=== PATIENT | female | born 1955 | race Caucasian/White ===

== ENCOUNTER 2021-12-17 09:38 | Outpatient (REF) | payer OTHER, SELFPAY ==
[2021-12-17 10:08] LABS: MANUAL DIFF FLAG NO
[2021-12-17 10:26] LABS: Basophils Percent Auto 0.5 % (0-2); Eosinophils Absolute Auto 0.2 X10*3/uL (0.0-0.4); Eosinophils Percent Auto 2.9 % (0-4); Hematocrit 45.5 % (37.0-47.0); Hemoglobin 15.1 g/dl (12.0-16.0); Imm Gran Abs Auto 0.01 X10*3/uL (0.00-0.03); Imm Gran Pct Auto 0.2 % (0.0-0.4); Lymphocytes Absolute Auto 2.1 X10*3/uL (1.2-4.9); Lymphocytes Percent Auto 38.7 % (20-40); Mean Corpuscular HGB Conc 33.2 g/dl (31.0-35.0); Mean Corpuscular Volume 90.5 fL (80.0-98.0); Mean Platelet Volume 9.5 fL (9.4-12.3); Monocytes Absolute Auto 0.6 X10*3/uL (0.1-1.2); Monocytes Percent Auto 10.4 % (2-11); Neutrophils Absolute Auto 2.6 x10*3/uL (2.0-8.3); Neutrophils Percent Auto 47.3 % (45-73); Platelet Count 281 X10*3/uL (160-400); Red Blood Count 5.03 X10*6/uL (4.20-5.50); Red Cell Distribution Width 12.7 % (11.0-16.0); White Blood Count 5.5 X10*3/uL (4.8-10.8)
[2021-12-17 10:51] LABS: Alanine Aminotransferase 19 U/L (0-31); Albumin Level 4.2 g/dL (3.5-5.0); Alkaline Phosphatase 60 U/L (39-117); Anion Gap 10 (12-20); Aspartate Amino Transferase 19 U/L (5-31); Bilirubin Total 0.6 mg/dL (0.0-1.0); Blood Urea Nitrogen 19 mg/dL (9-16); Calcium 9.7 mg/dL (8.4-10.2); Carbon Dioxide 29 mmol/L (22-29); Chloride 104 mmol/L (96-108); Cholesterol 227 mg/dL; Estimated Glomerular Filt Rate > 60; Glucose Fasting 115 mg/dL (60-99); HDL Cholesterol 42 mg/dL; LDL Cholesterol Calculated 159 mg/dl; Potassium 4.1 mmol/L (3.3-5.1); Sodium 139 mmol/L (135-145); Total Protein 7.1 g/dL (6.5-8.0); Triglycerides 131 mg/dL
== END 2021-12-17 09:39 | disposition home or self-care (01) ==
LOC: HO.LAB 09:38
PROVIDERS: PCP Internal Medicine; Visit Provider Internal Medicine
DX: K57.90 Diverticulosis of intestine, part unspecified, without perforation or abscess without bleeding (principal); R21 Rash and other nonspecific skin eruption; M19.90 Unspecified osteoarthritis, unspecified site
CPT/HCPCS: 36415; 80053; 80061; 85025

== ENCOUNTER 2022-08-05 09:24 | Outpatient (REF) | payer OTHER, SELFPAY ==
[2022-08-05 09:46] LABS: MANUAL DIFF FLAG NO
[2022-08-05 10:20] LABS: Basophils Percent Auto 0.8 % (0-2); Eosinophils Absolute Auto 0.2 X10*3/uL (0.0-0.4); Eosinophils Percent Auto 3.6 % (0-4); Hematocrit 44.1 % (37.0-47.0); Imm Gran Abs Auto 0.01 X10*3/uL (0.00-0.03); Imm Gran Pct Auto 0.2 % (0.0-0.4); Lymphocytes Percent Auto 40.1 % (20-40); Mean Corpuscular Hemoglobin 30.4 pg (27.0-33.0); Mean Corpuscular Volume 89.5 fL (80.0-98.0); Mean Platelet Volume 9.6 fL (9.4-12.3); Monocytes Absolute Auto 0.5 X10*3/uL (0.1-1.2); Monocytes Percent Auto 9.9 % (2-11); Neutrophils Absolute Auto 2.2 x10*3/uL (2.0-8.3); Neutrophils Percent Auto 45.4 % (45-73); Platelet Count 295 X10*3/uL (160-400); Red Blood Count 4.93 X10*6/uL (4.20-5.50); Red Cell Distribution Width 12.7 % (11.0-16.0); White Blood Count 4.9 X10*3/uL (4.8-10.8)
[2022-08-05 11:01] LABS: Alanine Aminotransferase 27 U/L (0-31); Albumin Level 4.3 g/dL (3.5-5.0); Alkaline Phosphatase 61 U/L (39-117); Anion Gap 17 (12-20); Aspartate Amino Transferase 24 U/L (5-31); Bilirubin Total 0.5 mg/dL (0.0-1.0); Blood Urea Nitrogen 16 mg/dL (9-16); Calcium 9.6 mg/dL (8.4-10.2); Carbon Dioxide 25 mmol/L (22-29); Chloride 104 mmol/L (96-108); Cholesterol 238 mg/dL; Estimated Glomerular Filt Rate > 60; Glucose Random 119 mg/dL (60-115); HDL Cholesterol 48 mg/dL; LDL Cholesterol Calculated 170 mg/dl; Sodium 142 mmol/L (135-145); Total Protein 7.1 g/dL (6.5-8.0); Triglycerides 103 mg/dL
== END 2022-08-05 09:25 | disposition home or self-care (01) ==
LOC: HO.LAB 09:24
PROVIDERS: PCP Internal Medicine; Visit Provider Internal Medicine
DX: E78.00 Pure hypercholesterolemia, unspecified (principal); K57.90 Diverticulosis of intestine, part unspecified, without perforation or abscess without bleeding
CPT/HCPCS: 36415; 80053; 80061; 85025

== ENCOUNTER 2022-11-23 09:25 | Outpatient (REF) | payer BC, SELFPAY ==
[2022-11-23 10:55] LABS: Anion Gap 10 (12-20); Blood Urea Nitrogen 14 mg/dL (9-16); Calcium 9.6 mg/dL (8.4-10.2); Carbon Dioxide 29 mmol/L (22-29); Chloride 105 mmol/L (96-108); Cholesterol 236 mg/dL; Estimated Glomerular Filt Rate > 60; Glucose Random 120 mg/dL (60-115); HDL Cholesterol 48 mg/dL; LDL Cholesterol Calculated 166 mg/dl; Potassium 4.1 mmol/L (3.3-5.1); Sodium 140 mmol/L (135-145); Triglycerides 111 mg/dL
[2022-11-23 11:13] LABS: Estimated Average Glucose 114 mg/dL; Hemoglobin A1c % 5.6 %
== END 2022-11-23 09:26 | disposition home or self-care (01) ==
LOC: HO.10HDL 09:25
PROVIDERS: Visit Provider Internal Medicine
DX: E78.00 Pure hypercholesterolemia, unspecified (principal); R73.03 Prediabetes
CPT/HCPCS: 36415; 80048; 80061; 83036

== ENCOUNTER 2023-02-23 09:23 | Outpatient (REF) | payer BC, SELFPAY ==
[2023-02-23 10:39] LABS: Estimated Average Glucose 117 mg/dL; Hemoglobin A1c % 5.7 %
[2023-02-23 11:02] LABS: Alanine Aminotransferase 22 U/L (0-31); Albumin Level 4.2 g/dL (3.5-5.0); Alkaline Phosphatase 58 U/L (39-117); Anion Gap 14 (12-20); Aspartate Amino Transferase 21 U/L (5-31); Bilirubin Total 0.8 mg/dL (0.0-1.0); Blood Urea Nitrogen 15 mg/dL (9-16); C Reactive Protein 0.37 mg/dL (< or = 0.50); Calcium 9.5 mg/dL (8.4-10.2); Carbon Dioxide 26 mmol/L (22-29); Chloride 107 mmol/L (96-108); Cholesterol 226 mg/dL; Estimated Glomerular Filt Rate > 60; Glucose Random 115 mg/dL (60-115); HDL Cholesterol 44 mg/dL; LDL Cholesterol Calculated 160 mg/dl; Potassium 4.2 mmol/L (3.3-5.1); Sodium 143 mmol/L (135-145); Total Protein 6.9 g/dL (6.5-8.0); Triglycerides 114 mg/dL
== END 2023-02-23 09:24 | disposition home or self-care (01) ==
LOC: HO.LAB 09:23
PROVIDERS: PCP Internal Medicine; Visit Provider Internal Medicine
DX: E78.00 Pure hypercholesterolemia, unspecified (principal); R73.03 Prediabetes; K57.90 Diverticulosis of intestine, part unspecified, without perforation or abscess without bleeding
CPT/HCPCS: 36415; 80053; 80061; 82550; 83036; 86140

== ENCOUNTER → 2023-04-19 10:45 | Outpatient (BNVA) | payer BC, SELFPAY | PROVIDERS: PCP Internal Medicine; Visit Provider Orthopaedic Surgery ==

== ENCOUNTER 2023-05-16 05:52 | Day surgery (SDC) | payer BC, SELFPAY ==
--- NOTE | 2023-05-12 15:01 | HO.ANESPROP2 ---
Documented by User: Masha Arana NP 05/12/23 15:03 HPI - Anesthesia Eval Consult details Narrative: 67yo F for Right Hand Mass excision Hx PONV and Motion sick. Scop patch ordered. [facility] Active Problems Active Problems: All Active Problems (Updated 05/11/23 @ 14:48 by Lois Quevedo, MARY) Mass of finger of right hand (Acute) Past Medical History Medical History Back pain Elevated cholesterol History of diverticulitis History of motion sickness PONV (postoperative nausea and vomiting) Pre-diabetes Seasonal allergies Surgical History Surgical History History of abdominal hysterectomy Hx of colonoscopy Status post excision of lipoma Social History Social History Patient Tobacco Use Status: Never used Tobacco Current occupational status: employed Current occupation: right hand / data warehouse developer Meds Allergies Allergy/AdvReac Type Severity Reaction Status Date / Time ampicillin [AMPICILLIN] Allergy Unknown RASH, Verified 05/16/23 06:06 rash, neck swelling corn [CORN] Allergy Unknown Rash Verified 05/16/23 06:06 strawberry [STRAWBERRY] Allergy Unknown Rash Verified 05/16/23 06:06 ENVIRONMENTAL Allergy Unknown UNKNOWN Uncoded 05/11/23 14:38 Home Medications Medication Instructions Recorded Confirmed Last Taken Type docusate sodium 100 mg capsule 100 mg PO DAILY 04/19/23 05/16/23 Unknown History (Stool Softener) Exam Exam Date and Time: May 12, 2023 1501 Pertinent Lab Results Pertinent Lab Results: Laboratory Tests 08/05/22 02/23/23 09:45 09:33 WBC 4.9 Hgb 15.0 Hct 44.1 Plt Count 295 Sodium 143 Potassium 4.2 Chloride 107 Carbon Dioxide 26 BUN 15 Creatinine 0.79 Assessment and Plan Assessment Anesthesia Assessment: Chart Reviewed Documented by User: Bisi Montaño MD 05/16/23 08:11 [facility] Past Medical History Medical History Back pain Elevated cholesterol History of diverticulitis History of motion sickness PONV (postoperative nausea and vomiting) Pre-diabetes Seasonal allergies Surgical History Surgical History History of abdominal hysterectomy Hx of colonoscopy Status post excision of lipoma History of Problems with Anesthesia: No Social History Social History Patient Tobacco Use Status: Never used Tobacco Current occupational status: employed Current occupation: right hand / data warehouse developer Meds Allergies Allergy/AdvReac Type Severity Reaction Status Date / Time ampicillin [AMPICILLIN] Allergy Unknown RASH, Verified 05/16/23 06:06 rash, neck swelling corn [CORN] Allergy Unknown Rash Verified 05/16/23 06:06 strawberry [STRAWBERRY] Allergy Unknown Rash Verified 05/16/23 06:06 ENVIRONMENTAL Allergy Unknown UNKNOWN Uncoded 05/11/23 14:38 Home Medications Medication Instructions Recorded Confirmed Last Taken Type docusate sodium 100 mg capsule 100 mg PO DAILY 04/19/23 05/16/23 Unknown History (Stool Softener) Exam Airway Mallampati Class: III TM Dist: >3cm Neck ROM: Full Loose/Missing/Broken Teeth: No Heart: RRR Lungs: CTA Assessment and Plan Assessment Anesthesia Assessment: Anesthesia Plan Discussed Final Anesthetic Review History of Problems with Anesthesia: No NPO: Yes ASA Class: II Final Preanesthetic Review: Meds/Allgs Chart Reviewed, Consent Obtained/Reviewed and Anes Risks/Benef Reviewed Patient Risk: Low Procedure Risk: Low Anesthetic Plan Anesthetic Plan: GA Disposition: Standard PACU
[2023-05-16] VITALS (9 sets, daily range): BP systolic 130–170; BP diastolic 70–92; PULSE 74–94; RESP 16–18; TEMP 36.1–36.3; O2SAT 94–99; BMI 35.3
[2023-05-16] MEDS: Scopolamine 1.5 MG PATCH.TD.3 TRANSDERMA (06:29)
[2023-05-16] MEDS: Lactated Ringers 1,000 ML 100 ML IVCONT (06:35)
[2023-05-16 07:42] LABS: Glucose, Whole Blood 135 mg/dL (60-115)
--- NOTE | 2023-05-16 07:52 | MHC.SHP ---
Pre-Procedural Eval Section A Date of Service: 05/16/23 The patient is an INPATIENT: No Changes since office visit: No Cold of Flu in the past 2 weeks, No New Medical Problems, No Changes in Medication and No Patient answered all questions The History & Physical has been completed within 30 days and I have reviewed it.: Yes Section B Chief Complaint: Localized swelling, mass and lump, right upper oliveira Allergies: Allergies Allergy/AdvReac Type Severity Reaction Status Date / Time ampicillin [AMPICILLIN] Allergy Unknown RASH, Verified 05/16/23 06:06 rash, neck swelling corn [CORN] Allergy Unknown Rash Verified 05/16/23 06:06 strawberry [STRAWBERRY] Allergy Unknown Rash Verified 05/16/23 06:06 ENVIRONMENTAL Allergy Unknown UNKNOWN Uncoded 05/11/23 14:38 Plan I have reviewed the history and physical and performed a pertinent physical examination on my patient. No changes have occurred unless specified. Time Spent With Patient Time: Total time managing care of this patient today ____ minutes.
--- NOTE | 2023-05-16 07:54 | W.PM.OPN ---
Operative Note Operative Note Date of Service: 05/16/23 Narrative: Operative Note Narrative: Preop diagnosis: 1. right index finger hand mass Postop diagnosis: Same Procedure: 1. Right hand mass excision Surgeon: Zainab Farmer MD Anesthesia: General Anesthesia [plus regional block] Findings: white, solid soft tissue mass measuring approximately 4-5 mm in diameter adherent to surrounding tissues Implants: none Tourniquet time: 5 minutes EBL: 5.0 ml Specimen: right index finger mass sent for histopathology Drains: None Complications: None Disposition: Brought to the recovery room in stable condition Plan: Follow-up in 10-14 days for wound check, suture removal and to check pathology Indications: The patient is a 67 year old woman with a soft tissue mass over the radial base of the right index finger . The risks and benefits of operative treatment, including but not limited to risk of damage to blood vessels, nerves, tendons, infection, recurrence, persistent pain or numbness, incomplete resolution of preoperative symptoms, or need for further surgery were discussed with the patient and they wished to proceed with surgery. Procedure: Once consent was obtained patient was brought back to the operating suite and placed in the operating table in a supine position. . Perioperative antibiotics and anesthesia was administered by the anesthesia team. A tourniquet was applied to the proximal aspect of the for right upper extremity and the limb was prepped and draped in a standard surgical fashion. The limb was elevated exsanguinated with Esmarch bandage and the tourniquet inflated to 250 mm of mercury for a total tourniquet time of 5 minutes. I made a 1 cm longitudinally oriented incision centered directly over the mass at the radial base of the patient's right index finger. The incision was made through the skin to the subcutaneous tissues using a 15. Blade. I then dissected down to the level of the soft tissue mass using tenotomy scissors. The mass was white, solid, and adherent to the surrounding tissues. It measured about 5 mm in diameter. The mass was carefully dissected free from the surrounding soft tissues, removed from the patient and placed on the back table to be sent for histopathologic review. No additional masses were identified. At this point the tourniquet was deflated and hemostasis obtained with a brief period of local pressure and bipolar electrocautery. The wound was copiously irrigated with normal saline. The skin edges were reapproximated with 5-0 nylon suture. The wound was infiltrated with some 1% lidocaine with epinephrine for postop pain control and a sterile dressing was applied. [ splint ] The patient appears to have tolerated the procedure well and with no complications. All digits were well vascularized conclusion of the case.
[2023-05-16] MEDS: ondansetron HCL 4 MG/2 ML VIAL IVPUSH (09:53)
== END 2023-05-16 10:40 | disposition home or self-care (01) ==
PROVIDERS: PCP Internal Medicine; Visit Provider Orthopaedic Surgery
PROC: (CPT 26115; principal; 2023-05-16 07:30)
DX: R22.31 Localized swelling, mass and lump, right upper limb (principal); M79.644 Pain in right finger(s); J30.2 Other seasonal allergic rhinitis; R73.03 Prediabetes; E78.00 Pure hypercholesterolemia, unspecified; Z79.899 Other long term (current) drug therapy; Z88.1 Allergy status to other antibiotic agents
CPT/HCPCS: 26115; 82947; 88304; 88307; J0690; J1100; J2250; J2405; J3010

== ENCOUNTER 2023-05-31 12:27 | Outpatient (AMB) | payer BC, SELFPAY ==
--- NOTE | 2023-05-31 12:31 | MHC.OFFVIS ---
Intake Intake Visit Reasons: PO R Hand Mass Exc. 05/16/23 AR Intake Note: Sujata is a 67 year old right hand dominant female who presents today for a post operative appointment s/p Right Hand Mass Excision 05/16/23. Sutures removed, Steris applied. Patient reports that she is doing well with no concerns. She is eager to get back to normal acitivites. Allergies ampicillin [AMPICILLIN] Allergy (Unknown, Verified 05/31/23 12:40) RASH, rash, neck swelling corn [CORN] Allergy (Unknown, Verified 05/31/23 12:40) Rash strawberry [STRAWBERRY] Allergy (Unknown, Verified 05/31/23 12:40) Rash ENVIRONMENTAL Allergy (Unknown, Uncoded 05/31/23 12:40) UNKNOWN HPI PO R Hand Mass Exc. 05/16/23 AR HPI Details Sujata is a 67 year old right hand dominant woman who presents S/P right hand mass excision, DOS: 05/16/23 She says she is doing well, without complaints. She is eager to return to normal activities, including picking blueberries from her blueberry bushes [facility] Medical History Back pain Elevated cholesterol History of diverticulitis History of motion sickness PONV (postoperative nausea and vomiting) Pre-diabetes Seasonal allergies Surgical History History of abdominal hysterectomy Hx of colonoscopy Status post excision of lipoma Social History Patient Tobacco Use Status: Never used Tobacco Current occupational status: employed Current occupation: right hand / data warehousing engineer Review of Systems Const All systems reviewed & are unremarkable except as noted in HPI and below Physical Exam Const General: no acute distress and alert Orientation/consciousness: patient oriented x3 Neuro General: patient oriented x3 Extrem Other: The patient was alert oriented and in no acute distress The incision is healing well with no erythema drainage or evidence of infection. Sutures removed and Steri-Strips applied She can make a fist with good strength and extend all her digits Sensation is intact Cap refill is brisk Pathology report: 05/16/23 Diagnosis Soft tissue, right hand, excision:? Dense haphazardly arranged fibrous tissue with focal degenerative changes, consistent with fibroma; negative for malignancy. Psych Appearance: grossly normal Affect: normal affect Attitude: cooperative Assessment & Plan Assessment & Plan (1) Mass of finger of right hand: Code(s): R22.31 - Localized swelling, mass and lump, right upper limb Plan Assessment & Plan: 1. Right index finger mass S/P excision DOS: 05/16/23 The patient appears to be doing well post-operatively I educated her about the post-operative course I discussed activity modifications, she is to lift nothing heavier than a cellphone for the next two weeks She will perform gentle ROM exercises at home She should avoid any underwater activities for the next 5 days She should gently massage about the incision site to reduce the risk of hypersensitivity She can follow up prn Scribed for Zainab Farmer MD by Alexey Moreira, medical cost consultant, on 05/31/23 at 1:15 PM, EST. Coding Level of Care Code Global (64548) Diagnoses Mass of finger of right hand R22.31
== END 2023-05-31 13:09 | disposition home or self-care (01) ==
PROVIDERS: Visit Provider Orthopaedic Surgery
DX: Z47.89 Encounter for other orthopedic aftercare (principal); R22.31 Localized swelling, mass and lump, right upper limb
CPT/HCPCS: 99024

== ENCOUNTER → 2023-05-31 12:27 | Outpatient (BNVA) | payer BC, SELFPAY | PROVIDERS: Visit Provider Orthopaedic Surgery ==

== ENCOUNTER 2023-08-16 10:04 | Outpatient (REF) | payer BC, SELFPAY ==
[2023-08-16 10:53] LABS: Estimated Average Glucose 114 mg/dL; Hemoglobin A1c % 5.6 % (<6.0)
[2023-08-16 11:04] LABS: Alanine Aminotransferase 19 U/L (0-31); Albumin Level 4.3 g/dL (3.5-5.0); Alkaline Phosphatase 58 U/L (39-117); Anion Gap 17 (12-20); Aspartate Amino Transferase 20 U/L (5-31); Bilirubin Total 0.6 mg/dL (0.0-1.0); Blood Urea Nitrogen 15 mg/dL (9-16); Calcium 9.6 mg/dL (8.4-10.2); Carbon Dioxide 24 mmol/L (22-29); Chloride 105 mmol/L (96-108); Cholesterol 214 mg/dL (<200); Estimated Glomerular Filt Rate > 60; Glucose Fasting 113 mg/dL (60-99); HDL Cholesterol 45 mg/dL (>40); LDL Cholesterol Calculated 149 mg/dL (<100); Potassium 3.8 mmol/L (3.3-5.1); Sodium 142 mmol/L (135-145); Total Protein 7.3 g/dL (6.5-8.0); Triglycerides 102 mg/dL (<150)
== END 2023-08-16 10:05 | disposition home or self-care (01) ==
LOC: HO.LAB 10:04
PROVIDERS: PCP Internal Medicine; Visit Provider Internal Medicine
DX: E78.00 Pure hypercholesterolemia, unspecified (principal); R73.01 Impaired fasting glucose
CPT/HCPCS: 36415; 80053; 80061; 83036

== ENCOUNTER 2024-01-10 10:00 | Outpatient (REF) | payer BC, SELFPAY ==
[2024-01-10 11:03] LABS: Estimated Average Glucose 111 mg/dL; Hemoglobin A1c % 5.5 % (<6.0)
[2024-01-10 11:12] LABS: Anion Gap 13 (12-20); Blood Urea Nitrogen 18 mg/dL (9-16); Calcium 9.4 mg/dL (8.4-10.2); Carbon Dioxide 27 mmol/L (22-29); Chloride 105 mmol/L (96-108); Cholesterol 216 mg/dL (<200); Estimated Glomerular Filt Rate > 60; Glucose Random 114 mg/dL (60-115); HDL Cholesterol 46 mg/dL (>40); LDL Cholesterol Calculated 155 mg/dL (<100); Sodium 141 mmol/L (135-145); Triglycerides 79 mg/dL (<150)
== END 2024-01-10 10:01 | disposition home or self-care (01) ==
LOC: HO.10HDL 10:00
PROVIDERS: Visit Provider Internal Medicine
DX: E78.00 Pure hypercholesterolemia, unspecified (principal); R73.03 Prediabetes
CPT/HCPCS: 36415; 80048; 80061; 83036

== ENCOUNTER 2024-09-06 10:38 | Outpatient (REF) | payer BC, SELFPAY ==
[2024-09-06 13:53] LABS: Anion Gap 11 (12-20); Blood Urea Nitrogen 17 mg/dL (9-16); Calcium 9.2 mg/dL (8.4-10.2); Carbon Dioxide 29 mmol/L (22-29); Chloride 105 mmol/L (96-108); Cholesterol 194 mg/dL (<200); Estimated Average Glucose 117 mg/dL; Estimated Glomerular Filt Rate > 60; Glucose Random 116 mg/dL (60-115); HDL Cholesterol 44 mg/dL (>40); Hemoglobin A1C 148.8888 umol/L; Hemoglobin A1c % 5.7 % (<6.0); LDL Cholesterol Calculated 128 mg/dL (<100); Sodium 141 mmol/L (135-145); Total Hemoglobin (HGBA1C) 3829.6236 umol/L; Triglycerides 110 mg/dL (<150)
== END 2024-09-06 10:39 | disposition home or self-care (01) ==
LOC: HO.10HDL 10:38
PROVIDERS: Visit Provider Internal Medicine
DX: E78.00 Pure hypercholesterolemia, unspecified (principal); R73.03 Prediabetes
CPT/HCPCS: 36415; 80048; 80061; 83036

== ENCOUNTER 2024-12-13 10:43 | Outpatient (REF) | payer BC, SELFPAY ==
--- NOTE | ~2024-12-13 | XR_ITS ---
EXAMINATION: XR SHOULDER, LEFT CLINICAL INFORMATION: LEFT SHOULDER PAIN COMPARISON: None available. TECHNIQUE: AP external rotation, Grashey, scapular Y, and axillary views of the left shoulder. FINDINGS: Normal bony mineralization. No fracture, dislocation, or suspicious bone lesion. Normal alignment. Mild to moderate osteoarthrosis present in the glenohumeral joint with small undersurface osteophytes. Mild widening of the AC joint noted, possibly postsurgical or congenital. No AC separation. Mild spurring. Neutral lateral acromion with preservation of the subacromial space. No subacromial spurs. No soft tissue abnormalities. Imaged lung clear. XR/XR shoulder LT min 2V IMPRESSION: 1. No acute findings left shoulder. 2. Mild to moderate degenerative glenohumeral joint arthritis. 3. Mild widening of the AC joint, possibly postsurgical or congenital. Mild degenerative spurring. Electronically signed by: Titi Giraldo MD 12/13/2024 11:20 AM [facility]
== END 2024-12-13 10:44 | disposition home or self-care (01) ==
LOC: HO.XRAY 10:43
PROVIDERS: Visit Provider Internal Medicine
DX: M25.512 Pain in left shoulder (principal)
CPT/HCPCS: 73030

== ENCOUNTER → 2024-12-13 10:50 | Outpatient (BNV) | payer BC, SELFPAY | PROVIDERS: Visit Provider Radiology Diagnostic Radiology | DX: M19.012 Primary osteoarthritis, left shoulder (principal) | CPT/HCPCS: 73030 ==

== ENCOUNTER 2024-12-20 18:09 | Emergency (ER) | payer BC, SELFPAY ==
--- NOTE | ~2024-12-20 | CT_ITS ---
CLINICAL HISTORY: Left-sided pain? Diverticulitis kidney stone CT abdomen and pelvis without contrast Comparison: None Findings: The lung bases are clear. There is a sliding-type hiatal hernia. Unremarkable solid organs. There are multiple gallstones with the gallbladder otherwise unremarkable. No urolithiasis. No bowel obstruction, pneumoperitoneum, or pneumatosis. There are diverticula in the descending and sigmoid colon with findings suggesting sigmoid diverticulitis. Pelvic contents unremarkable. Normal appendix. The bones are intact. IMPRESSION: Moderate colonic diverticular disease with sigmoid diverticulitis. This document has been electronically signed by: Gordo Lee MD on 12/20/2024 22:46:13
--- NOTE | 2024-12-20 18:24 | ED_ITS ---
HPI - General Adult General Chief complaint: Abdominal Pain Stated complaint: Flank Pain sent by Urgent Care Time Seen by Provider: 12/20/24 21:26 Source: patient Mode of arrival: ambulatory Limitations: no limitations History of Present Illness ED Provider: HPI narrative: Patient no significant past medical history comes here for left flank pain started gradually yesterday seen at urgent care center sent here to rule out diverticulitis patient does have nausea and vomited 2 times today also does have nasal congestion cough since yesterday patient's was tested positive for influenza A no prior history of kidney stone does have a history of diverticulosis in the past no blood in his stool did not eat much today no fever no chills Related Data Home Medications ?Medication ?Instructions ?Recorded ?Confirmed docusate sodium 100 mg capsule 100 mg PO DAILY 04/19/23 05/16/23 (Stool Softener) Previous Rx's ?Medication ?Instructions ?Recorded ciprofloxacin HCl 500 mg tablet 500 mg PO BID #20 tabs 12/20/24 (Cipro) metronidazole 500 mg tablet 500 mg PO TID #30 tabs 12/20/24 ondansetron 4 mg disintegrating 4 mg PO Q6-8H PRN nausea and 12/20/24 tablet vomiting #7 tabs oseltamivir 75 mg capsule (Tamiflu) 75 mg PO BID 5 days #10 caps 12/20/24 Allergies Allergy/AdvReac Type Severity Reaction Status Date / Time ampicillin [AMPICILLIN] Allergy Unknown RASH, Verified 12/20/24 18:26 rash, neck swelling corn [CORN] Allergy Unknown Rash Verified 12/20/24 18:26 strawberry [STRAWBERRY] Allergy Unknown Rash Verified 12/20/24 18:26 ENVIRONMENTAL Allergy Unknown UNKNOWN Uncoded 05/31/23 12:40 Review of Systems 2 Review of Systems: Yes all other systems are reviewed and are negative PMFSH Past Medical History Medical History Seasonal allergies Back pain PONV (postoperative nausea and vomiting) History of motion sickness History of diverticulitis Pre-diabetes Elevated cholesterol Surgical History Status post excision of lipoma History of abdominal hysterectomy Hx of colonoscopy Social History Social History Patient Tobacco Use Status: Never used Tobacco Current occupational status: employed Current occupation: right hand / clinical data manager Physical Exam ED Vital Signs: Vital Signs - 24 hr 12/21/24 00:11 12/21/24 00:39 Temperature 98.3 F 98.3 F Pulse Rate 85 85 Respiratory Rate 16 16 Blood Pressure 140/71 H 140/71 H Pulse Oximetry 94 94 Oxygen Delivery Method Room Air Room Air BMI result Body Mass Index 37.3 Appearance: Alert. Oriented X3. No acute distress. Eyes: No pallor or icterus ENT: Pharynx normal. Oral Mucosa moist Neck: Normal inspection. Neck supple. CVS: Normal heart rate and rhythm. Pulses normal. Respiratory: No respiratory distress. Equal air entry bilateral, no wheezing/rales/rhonchi Abdomen: Soft and deep tenderness left lower quadrant Bowel sounds are present, no mass palpable, no CVA tenderness Skin: Skin warm and dry. Normal skin color. Normal skin turgor. Extremities: No lower extremity edema. No calf tenderness Neuro: Oriented X 3. No motor deficit. No sensory deficit.No cerebellar signs , cranial nerves II-XII intact Course Course Course Narrative: RME, this is a rapid medical exam performed by Rickie Little please refer to primary provider for complete H&P- 69-year-old female presents for evaluation of left lower abdominal pain with associated nausea and vomiting. His symptoms started this morning. She has a past medical history significant for diverticulitis, she is status post hysterectomy but no other abdominal surgeries. Plan for labs, urinalysis. Medications Administered Discontinued Medications Generic Name Dose Route Start Last Admin Trade Name Freq PRN Reason Stop Dose Admin Acetaminophen 650 mg 12/20/24 21:00 12/20/24 21:01 Acetaminophen 325 Mg Tablet PO 12/20/24 21:01 650 mg ONCE ONE Administration Levofloxacin 500 mg 12/20/24 22:52 12/21/24 00:05 Levofloxacin 500 Mg Tablet PO 12/20/24 22:53 500 mg ONCE ONE Administration Metronidazole 500 mg 12/20/24 22:52 12/21/24 00:05 Metronidazole 500 Mg Tablet PO 12/20/24 22:53 500 mg ONCE ONE Administration Ondansetron HCl 4 mg 12/20/24 22:56 12/21/24 00:05 Ondansetron Odt 4 Mg Tab.Rapdis TRANSLINGU 12/20/24 22:57 4 mg ONCE ONE Administration Oseltamivir Phosphate 75 mg 12/20/24 22:56 12/21/24 00:05 Oseltamivir Phosphate 75 Mg Capsule PO 12/20/24 22:57 75 mg ONCE ONE Administration Medical Decision Making Medical Decision Making [facility] Narrative: Patient's left lower quadrant pain with normal WBCs count urine shows few red cells patient does not have any kidney stone but does have history of diverticulitis in the past at this time patient has mild tenderness in left lower quadrant will do a CT scan out kidney stone/diverticulitis Patient's CT scan shows uncomplicated sigmoid diverticulitis also has gallstones patient does not have any pain in the right upper white counts are normal will prescribe Levaquin also for influenza A will prescribe Tamiflu Differential Diagnosis Differential Diagnoses: The differential diagnosis associated with the presentation includes Admission/Observation Consideration of admission/observation: Escalation of care including admission/observation considered Lab Data [facility] Lab Attestation statement: I reviewed the patient's lab results. 12/20/24 18:54 12/20/24 18:54 Labs: Lab Results 12/20/24 Range/Units 18:54 WBC 5.4 (4.8-10.8) X10*3/uL RBC 4.47 (4.20-5.50) X10*6/uL Hgb 13.6 (12.0-16.0) g/dl Hct 39.2 (37.0-47.0) % MCV 87.7 (80.0-98.0) fL MCH 30.4 (27.0-33.0) pg MCHC 34.7 (31.0-35.0) g/dl RDW 12.0 (11.0-16.0) % Plt Count 230 (160-400) X10*3/uL MPV 8.7 L (9.4-12.3) fL Immature Gran % (Auto) 0.2 (0.0-0.4) % Neut % (Auto) 75.6 H (45-73) % Lymph % (Auto) 9.4 L (20-40) % [place] % (Auto) 14.6 H (2-11) % Eos % (Auto) 0.0 (0-4) % Baso % (Auto) 0.2 (0-2) % Lymph # (Auto) 0.5 L (1.2-4.9) X10*3/uL [place] # (Auto) 0.8 (0.1-1.2) X10*3/uL Eos # (Auto) 0.0 (0.0-0.4) X10*3/uL Baso # (Auto) 0.0 (0.0-0.2) X10*3/uL Abs Immat Gran (auto) 0.01 (0.00-0.03) X10*3/uL Absolute Neuts (auto) 4.1 (2.0-8.3) x10*3/uL Absolute Nucleated RBC 0.000 (0.0-0.012) X10*3/uL Nucleated RBC % (auto) 0.0 (0.0-0.2) /100WBC PT 12.6 H (10.9-12.4) SEC INR 1.1 (0.9-1.1) Sodium 133 L (135-145) mmol/L Potassium 3.5 (3.3-5.1) mmol/L Chloride 99 (96-108) mmol/L Carbon Dioxide 23 (22-29) mmol/L Anion Gap 15 (12-20) BUN 14 (9-16) mg/dL Creatinine 0.59 (0.5-1.4) mg/dL Estim Creat Clear Calc 97.9 Estimated GFR > 60 Random Glucose 129 H (60-115) mg/dL Lactic Acid 0.8 (0.5-2.0) mmol/L Calcium 9.4 (8.4-10.2) mg/dL Total Bilirubin 0.4 (0.0-1.0) mg/dL AST 23 (5-31) U/L ALT 18 (0-31) U/L Alkaline Phosphatase 54 (39-117) U/L Troponin I High Sens 3.8 (<3.5-17.0) ng/L Total Protein 7.6 (6.5-8.0) g/dL Albumin 4.2 (3.5-5.0) g/dL Lipase 13 (8-78) U/L Urine Color Dark Yellow Urine Appearance Clear Urine pH 5.5 (5.0-9.0) Ur Specific [place] 1.025 (1.005-1.025) Urine Protein 30 (1+) H (Neg-Trace) mg/dL Urine Glucose (UA) Negative (Negative) mg/dL Urine Ketones 40 (Negative) mg/dL Urine Blood Small (1+) H (Negative) Urine Nitrite Negative (Negative) Ur Leukocyte Esterase Negative (Negative) Urine RBC 11-20 H (0-2) /HPF Urine WBC 0-5 (0-5) /HPF Ur Squamous Epith Cells 0-2 (0-2) /HPF Urine Bacteria None Seen (None Seen) Hyaline Casts 0-2 (0-2) /LPF Influenza Type A (PCR) POSITIVE A (Negative) Influenza Type B (PCR) NEGATIVE (Negative) RSV RNA Qual (PCR) NEGATIVE (Negative) SARS-CoV-2 RNA (RT-PCR) NEGATIVE (Negative) Independent Interpretation I performed an independent interpretation of an: CT Scan Radiology Impression Discussion of test interpretation with radiology: I have reviewed the radiologist's reading. Radiologist Impression: [place] [id number] CT Scan Report Signed with Addenda Patient: Sujata Tenorio MR#: [id number] : 1955 Acct:[id number] Age/Sex: 69 / F ADM Date: 12/20/24 Loc: .ED Attending Dr: Ordering Physician: Bin Vasquez MD Date of Service: 12/20/24 Procedure(s): CT abdomen pelvis wo IV con Accession Number(s): [id number] cc: Baudilio Cobb MD; Bin Vasquez MD~ Report Number: [id number]: Total DLP = 771.00 mGy-cm ADDENDUMThis document has been electronically signed by: Gordo Lee MD on 12/20/2024 22:46:13 ADDENDUM: Receipt of this report by the clinical staff was confirmed with Gerardo Washington RN on Dec 20, 2024 22:55:00 EST. This document has been electronically signed by: Jessi Velazco on 12/20/2024 22:55:57 Addendum Dictated By: Gordo Lee MD Addendum Signed By: <Electronically signed by Gordo Lee MD in OV> 12/20/24 [id number] Addendum Cosigned By: DD/ TD/TT: 12/20/24 CLINICAL HISTORY: Left-sided pain? Diverticulitis kidney stone CT abdomen and pelvis without contrast Comparison: None Findings: The lung bases are clear. There is a sliding-type hiatal hernia. Unremarkable solid organs. There are multiple gallstones with the gallbladder otherwise unremarkable. No urolithiasis. No bowel obstruction, pneumoperitoneum, or pneumatosis. There are diverticula in the descending and sigmoid colon with findings suggesting sigmoid diverticulitis. Pelvic contents unremarkable. Normal appendix. The bones are intact. IMPRESSION: Moderate colonic diverticular disease with sigmoid diverticulitis. This document has been electronically signed by: Gordo Lee MD on 12/20/2024 22:46:13 Discharge Plan Discharge Clinical Impression: Diverticulitis, Influenza A Patient Disposition: Home, Self-Care Instructions: Diverticulitis (ED), Influenza (ED), Diverticulitis Diet (ED) Additional Instructions: Drink plenty of fluids Liquid diet advanced slowly as tolerated Antibiotic as prescribed You have influenza A , social distancing as advised, take Tamiflu as prescribed Report to the ER if worsening of the pain Prescriptions: New oseltamivir [Tamiflu] 75 mg capsule 75 mg PO BID 5 Days Qty: 10 0RF ciprofloxacin HCl [Cipro] 500 mg tablet 500 mg PO BID Qty: 20 0RF metronidazole 500 mg tablet 500 mg PO TID Qty: 30 0RF ondansetron 4 mg tablet,disintegrating 4 mg PO Q6-8H PRN (Reason: nausea and vomiting) Qty: 7 0RF No Action docusate sodium [Stool Softener] 100 mg capsule 100 mg PO DAILY Interventions: ED Discharge Assessment Last Done: 12/21/24 00:39 Discharge Date/Time: 12/21/24 00:40 Print Language: Egyptian
[2024-12-20 18:25] VITALS: BP 137/79; PULSE 100; RESP 18; TEMP 36.9; O2SAT 94; BMI 37.3
--- NOTE | 2024-12-20 18:26 | ECG_ITS ---
Test Reason : PAIN Blood Pressure : */* mmHG Vent. Rate : 97 BPM Atrial Rate : 97 BPM P-R Int : 168 ms QRS Dur : 92 ms QT Int : 350 ms P-R-T Axes : 54 -2 38 degrees QTcB Int : 444 ms Normal sinus rhythm Normal ECG No previous ECGs available Referred By: Elmo Little Electronically Signed By: GISELL LORA
[2024-12-20 18:59] LABS: MANUAL DIFF FLAG NO
[2024-12-20 19:00] LABS: Basophils Percent Auto 0.2 % (0-2); Hematocrit 39.2 % (37.0-47.0); Hemoglobin 13.6 g/dl (12.0-16.0); Imm Gran Abs Auto 0.01 X10*3/uL (0.00-0.03); Imm Gran Pct Auto 0.2 % (0.0-0.4); Lymphocytes Absolute Auto 0.5 X10*3/uL (1.2-4.9); Lymphocytes Percent Auto 9.4 % (20-40); Mean Corpuscular HGB Conc 34.7 g/dl (31.0-35.0); Mean Corpuscular Hemoglobin 30.4 pg (27.0-33.0); Mean Corpuscular Volume 87.7 fL (80.0-98.0); Mean Platelet Volume 8.7 fL (9.4-12.3); Monocytes Absolute Auto 0.8 X10*3/uL (0.1-1.2); Monocytes Percent Auto 14.6 % (2-11); Neutrophils Absolute Auto 4.1 x10*3/uL (2.0-8.3); Neutrophils Percent Auto 75.6 % (45-73); Platelet Count 230 X10*3/uL (160-400); Red Blood Count 4.47 X10*6/uL (4.20-5.50); White Blood Count 5.4 X10*3/uL (4.8-10.8)
[2024-12-20 19:01] LABS: Appearance Urine Clear; Color Urine Dark Yellow; Glucose Urine UA Negative (Negative); Leukocyte Esterase Urine Negative (Negative); Nitrite Urine Negative (Negative); PH 5.5 (5.0-9.0); Specific Gravity - Urine 1.025 (1.005-1.025); UMIC TRIGGER UACC YES; Urine Blood Small (1+) (Negative); Urine Ketones 40 mg/dL (Negative); Urine Protein 30 (1+) mg/dL (Neg-Trace)
[2024-12-20 19:06] LABS: Bacteria Urine None Seen (None Seen); Hyaline Casts Urine 0-2 /LPF (0-2); Squamous Epithelial Cell Urine 0-2 /HPF (0-2); WBC Urine 0-5 /HPF (0-5)
[2024-12-20 19:11] LABS: INTERNATIONAL NORM RATIO 1.1 (0.9-1.1); Prothrombin Time 12.6 SEC (10.9-12.4)
[2024-12-20 19:16] LABS: Lactic Acid 0.8 mmol/L (0.5-2.0)
[2024-12-20 19:22] LABS: Troponin-I High Sensitivity 3.8 ng/L (<3.5-17.0)
[2024-12-20 19:24] LABS: Alanine Aminotransferase 18 U/L (0-31); Albumin Level 4.2 g/dL (3.5-5.0); Alkaline Phosphatase 54 U/L (39-117); Aspartate Amino Transferase 23 U/L (5-31); Bilirubin Total 0.4 mg/dL (0.0-1.0); Blood Urea Nitrogen 14 mg/dL (9-16); Calcium 9.4 mg/dL (8.4-10.2); Carbon Dioxide 23 mmol/L (22-29); Creatinine Clr Calc Pharmacy 97.9; Estimated Glomerular Filt Rate > 60; Glucose Random 129 mg/dL (60-115); Lipase 13 U/L (8-78); Total Protein 7.6 g/dL (6.5-8.0)
[2024-12-20 19:30] LABS: Anion Gap 15 (12-20); Chloride 99 mmol/L (96-108); Potassium 3.5 mmol/L (3.3-5.1); Sodium 133 mmol/L (135-145)
[2024-12-20 20:08] LABS: Influenza A PCR POSITIVE (Negative); Influenza B PCR NEGATIVE (Negative); Resp Syncy Virus RNA Qual PCR NEGATIVE (Negative); SARS COV2 PCR INHOUSE NEGATIVE (Negative)
[2024-12-20] MEDS: Acetaminophen 325 MG TABLET 650 MG PO (21:01)
[2024-12-20 22:19] VITALS: BP 140/78; PULSE 96; RESP 20; TEMP 37.3; O2SAT 94
[2024-12-21] MEDS: Ondansetron ODT 4 MG TAB.RAPDIS TRANSLINGU (00:05)
[2024-12-21] MEDS: levoFLOXacin 500 MG TABLET PO (00:05)
[2024-12-21] MEDS: metroNIDAZOLE 500 MG TABLET PO (00:05)
[2024-12-21] MEDS: Oseltamivir Phosphate 75 MG CAPSULE PO (00:05)
[2024-12-21 00:11] VITALS: BP 140/71; PULSE 85; RESP 16; TEMP 36.8; O2SAT 94
[2024-12-21 00:39] VITALS: BP 140/71; PULSE 85; RESP 16; TEMP 36.8; O2SAT 94
== END 2024-12-21 00:40 | disposition home or self-care (01) ==
PROVIDERS: Physician Assistant; Emergency Provider Internal Medicine; PCP Internal Medicine
DX: J10.1 Influenza due to other identified influenza virus with other respiratory manifestations (principal); R10.9 Unspecified abdominal pain; R11.2 Nausea with vomiting, unspecified; R05.9 Cough, unspecified; Z03.818 Encounter for observation for suspected exposure to other biological agents ruled out; E11.9 Type 2 diabetes mellitus without complications; E78.5 Hyperlipidemia, unspecified; Z79.899 Other long term (current) drug therapy
CPT/HCPCS: 0241U; 36415; 74176; 80053; 81001; 83605; 83690; 84484; 85025; 85610; 93005; 99284

== ENCOUNTER → 2024-12-20 18:26 | Outpatient (BNV) | payer BC, SELFPAY | PROVIDERS: Emergency Provider Internal Medicine; PCP Internal Medicine; Visit Provider Internal Medicine | DX: R52 Pain, unspecified (principal) | CPT/HCPCS: 93010 ==

== ENCOUNTER → 2024-12-20 21:40 | Outpatient (BNV) | payer BC, SELFPAY | PROVIDERS: Emergency Provider Internal Medicine; PCP Internal Medicine; Visit Provider Specialist | DX: K57.32 Diverticulitis of large intestine without perforation or abscess without bleeding (principal) | CPT/HCPCS: 74176 ==

== ENCOUNTER 2025-01-21 13:17 | Outpatient (AMB) | payer BC, SELFPAY ==
--- NOTE | 2025-01-21 13:29 | MHC.OFFVIS ---
Intake Visit Reasons: New prob- Left shoulder pain Intake Note: Sujata is a 69 year old right hand dominant female who presents today with her sister for an evaluation of left shoulder pain. Hx of cyst removal in her left shoulder. Patient was seen by her PCP, who ordered x-rays and referred to orthopedics. Patient states that her pain was on 11/23/24. She mentions that she had a massage stick when she tried to use it it made her get a sharp pain down her arm. Patient states that she is feeling a tingling sensation Her pain is worse when Patient has tried and failed heat. Allergies ampicillin [AMPICILLIN] Allergy (Unknown, Verified 01/21/25 13:59) RASH, rash, neck swelling corn [CORN] Allergy (Unknown, Verified 01/21/25 13:59) Rash strawberry [STRAWBERRY] Allergy (Unknown, Verified 01/21/25 13:59) Rash ENVIRONMENTAL Allergy (Unknown, Uncoded 05/31/23 12:40) UNKNOWN Medication List - Last Reconciled 01/21/25 by Jamel Gomez PA-C No Known Home Meds HPI HPI New prob- Left shoulder pain: Details: 69 yo female presents to the office today for pain in the left shoulder x2 months. The pain was located along the scapula region. She has experienced some neck pain that has since resolved. She states the pain does radiate down the arm and c/o intermittent n/t down the arm to the fingers. She has used NSAIDs, lidocaine patches with some relief. Denies injury [facility] Medical History Seasonal allergies Back pain PONV (postoperative nausea and vomiting) History of motion sickness History of diverticulitis Pre-diabetes Elevated cholesterol Surgical History Status post excision of lipoma History of abdominal hysterectomy Hx of colonoscopy Social History Patient Tobacco Use Status: Never used Tobacco Current occupational status: employed Current occupation: right hand / data warehousing engineer Review of Systems Const All systems reviewed & are unremarkable except as noted in HPI and below Physical Exam Const General: cooperative and no acute distress Orientation/consciousness: patient oriented x3 Resp Effort & Inspection: normal respiratory effort and able to speak in complete sentences Cardio Peripheral pulses: Peripheral pulses 2+ throughout Neuro General: patient oriented x3 Extrem Other: Left shoulder normal to inspection tenderness along the ac joint. Full ROM in all planes with mild discomfort. Pain with IR against resistance. She was able to activate RTC strength testing. Results Reviewed Results Reviewed: XR shoulder LT min 2V IMPRESSION: 1. No acute findings left shoulder. 2. Mild to moderate degenerative glenohumeral joint arthritis. 3. Mild widening of the AC joint, possibly postsurgical or congenital. Mild degenerative spurring. Assessment & Plan Assessment & Plan (1) Left shoulder tendonitis: Code(s): M77.8 - Other enthesopathies, not elsewhere classified Category: Medical Plan: We discussed options which include PT, NSAIDs and injections. She will defer on the injection today and proceed with PT and NSAIDs. If symptoms persist she will contact me for an injection, otherwise, prn. Orders: Orders PT Evaluation and Treatment Today M77.8 - Other enthesopathies, not elsewhere classified Coding Level of Care Code New Pt Level 3 (60115) Complex EM visit Add On G2211 Diagnoses Left shoulder tendonitis M77.8
--- OUTSIDE RECORDS SUMMARY | 2025-01-21 15:34 | XMS_ITS | Continuity of Care Document ---
Author Name [facility] Organization [facility] Care Team Providers Care Fur Plucker Name Role Phone [facility] Unavailable Unavailable Immunizations Combined list of available immunizations from the Department of Defense and Veterans Affairs facilities. Immunization Series Date Given Administered By Site Reaction Lot Number [id number] Code Drug Project Executive Status Comments Source COVID-19 (MODERNA), MRNA, LNP-S, PF, 100 MCG/0.5 ML DOSE 2 2020 207 complet ed MOD; [id number]; [facility] COVID-19 (MODERNA), MRNA, LNP-S, PF, 100 MCG/0.5 ML DOSE 1 2020 207 complet ed MOD; [id number]; 1 [facility] [place] [facility]
== END 2025-01-21 14:25 | disposition home or self-care (01) ==
PROVIDERS: Visit Provider Physician Assistant
DX: M77.8 Other enthesopathies, not elsewhere classified (principal); M25.512 Pain in left shoulder
CPT/HCPCS: 99213

== ENCOUNTER → 2025-01-21 13:17 | Outpatient (BNVA) | payer BC, SELFPAY | PROVIDERS: Visit Provider Physician Assistant ==

== ENCOUNTER 2025-02-19 13:52 | Outpatient (RCR) | payer MEDICARE, SELFPAY ==
--- NOTE | 2025-02-05 18:39 | MHC.PT.EP ---
[facility] [place] Office [place] Office [place] Office [address] Mari Nguyen [address] [phone] F: [phone] F: [phone] F: [phone] F: [phone] Physical Therapy Plan of Care Date of Evaluation: 02/05/25 Date of Surgery: Diagnosis: L shoulder tendonitis. Assessment: Pt is a 69 y/o RHD female who is referred to PT for eval and treat of L shoulder tendonitis which is resulting in decreased tolerance for laying on her L side reaching high shelves, lifting objects of weight, performing fitness activities, dressing her hair as well as heavy HH chores secondary to decreased L shoulder ROM and strength, TTP of anterior L shoulder, increased upper trap tissue tension, L sided cervical limitations, decreased shoulder and cervical posture, and pain with activity. Pt is deemed an appropriate candidate to receive skilled PT services to address their physical impairments in order to improve their functional ability. Frequency and Duration: The patient will be seen 2 x/ wk x 4 wks. Short Term Goals: Initiate home program. Improve baseline pain to < 3/10. Jail Goals: I with home program. improves SPADI outcome by at least 13 points. symmetrical shoulder flexion achieved. Improve L shoulder ER strength by at least 1/2 MMT grade. Pt will be able to reach high Shelves with managed Sx. Treatment Plan: Modalities to reduce pain, spasms and effusion. Manual therapy to restore motion and function. Therapeutic exercise to improve strength and flexibility. Neuromuscular re-education for posture and balance. Therapeutic activities to return to functional activities of daily living. Electronically signed by: Frandy Saravia PT. Please sign and return to therapist. Thank you for your referral.
--- NOTE | 2025-03-01 15:07 | MHC.PT.DC ---
[facility] [place] Office [place] Office [place] Office [address] Mari Nguyen [address] [phone] F: [phone] F: [phone] F: [phone] F: [phone] Physical Therapy Discharge Report Diagnosis: L shoulder tendonitis. Date of Surgery: Date of Evaluation: 02/05/25 Date of Discharge: 03/01/25 Treatments to Date: 5 Cancellations to Date: No Shows to Date: Discharge Status: Achieved Goals Improved Function Independent with HEP Patient Elected to Stop Discharge Summary: 02/19 pt requested today to be d/c. Good performance of HEP. States ex have helped, she understands rational and plans to continuing the ex at home. Electronically signed by: Frandy Saravia PT. Please sign and return to therapist. Thank you for your referral.
== END 2025-03-01 15:06 | disposition home or self-care (01) ==
LOC: HO.PT 13:52
PROVIDERS: PCP Internal Medicine; Visit Provider Physician Assistant
DX: M75.22 Bicipital tendinitis, left shoulder (principal)
CPT/HCPCS: 97110; 97161

== ENCOUNTER 2025-05-10 09:51 | Outpatient (REF) | payer MEDICARE, SELFPAY ==
--- NOTE | ~2025-05-10 | XR_ITS ---
CLINICAL HISTORY: M25.511 - Pain in right shoulder 4 view right shoulder Comparison: None Findings: Normal congruency of the glenohumeral joint. Minimal spurring inferior glenoid. AC joint arthrosis with no undersurface spurring. No fractures or bony erosions. Greater tuberosity cysts. Normal bone mineralization and soft tissues. No radiopaque foreign body. Normal visualized right chest. Impression: 1. No fracture, subluxations, or dislocations right shoulder. 2. AC joint arthrosis no undersurface spurring. Minimal spurring inferior glenoid. 3. Greater tuberosity cysts sequela of rotator cuff tendinopathy no soft tissue calcifications This document has been electronically signed by: Eomry De Oliveira MD on 05/10/2025 16:11:14
== END 2025-05-10 09:52 | disposition home or self-care (01) ==
LOC: HO.XRAY 09:51
PROVIDERS: PCP Internal Medicine; Visit Provider Internal Medicine
DX: Z13.228 Encounter for screening for other metabolic disorders (principal); Z13.0 Encounter for screening for diseases of the blood and blood-forming organs and certain disorders involving the immune mechanism; M25.511 Pain in right shoulder; E78.00 Pure hypercholesterolemia, unspecified; R73.03 Prediabetes; E66.9 Obesity, unspecified; Z68.36 Body mass index [BMI] 36.0-36.9, adult; Z71.3 Dietary counseling and surveillance
CPT/HCPCS: 73030; 99202

== ENCOUNTER 2025-05-10 09:51 | Outpatient (AMB) | payer MEDICARE, SELFPAY ==
--- OUTSIDE RECORDS SUMMARY | 2025-04-30 05:00 | XMS_ITS | Continuity of Care Document ---
Author Name [facility] Organization [facility] Care Team Providers Care Harpoon Engagement Planning Operator Name Role Phone [facility] Unavailable Unavailable Problems Combined list of problems from Department of Defense and Veterans Affairs facilities. It does not include entries that were removed or entered in error. Problem Status Onset Date Problem Type Date of Resolution Comments Source Diagnosis: ICD-10-CM Z71.0 Prsn encntr hlth serv to consult on behalf of another person Active Diagnosis [facility] [place] Immunizations Combined list of available immunizations from the Department of Defense and Veterans Affairs facilities. Immunization Series Date Given Administered By Site Reaction Lot Number CVX Code Drug Estate Planning Attorney Status Comments Source COVID-19 (MODERNA), MRNA, LNP-S, PF, 100 MCG/0.5 ML DOSE 2 2020 207 complet ed MOD; [id number]; 1 [facility] COVID-19 (MODERNA), MRNA, LNP-S, PF, 100 MCG/0.5 ML DOSE 1 2020 207 complet ed MOD; [id number]; 1 [facility] Encounters Combined list of: 1) Encounters from Department of Veterans Affairs facilities going backup to the last 18 months, not all VA inpatient encounters are included; 2) Encounters from the Department of Defense facilities going backup to 280 months. Location Location Details Encounter Type Encounter Number Reason For Visit Attending Provider ADM Date DC Date Status Disposition Source [facility] PROGRAM INTAKE ASSESSMENT [id number] Diagnos is: ICD-10- CM Z71.0 Prsn encntr hlth serv to consult on behalf of another person LOLIS WALLER 04/30 [facility]
--- NOTE | 2025-05-10 09:12 | MHC.PC.OV ---
Vital Signs 05/10/25 09:53 Height 5 ft 2 in Weight 200 lb BMI 36.6 BP 136/80 Blood Pressure Location Rt brachial Position Sitting Pulse 86 Pulse Source Pulse Oximeter Temp 97.5 F Temp Source Axillary Pulse Oximetry (%) 97 Oxygen Delivery Method Room Air Intake Visit Reasons: Routine - see comments Crane Ladle Person Required: No Accompanied by: Self / Same As Patient Allergies ampicillin (AMPICILLIN) Allergy (Unknown, Verified 05/10/25 09:53) RASH, rash, neck swelling corn (CORN) Allergy (Unknown, Verified 05/10/25 09:53) Rash strawberry (STRAWBERRY) Allergy (Unknown, Verified 05/10/25 09:53) Rash ENVIRONMENTAL Allergy (Unknown, Uncoded 05/31/23 12:40) UNKNOWN Tobacco use date assessed: 05/10/25 Fall risk assessment: No Falls in past year Last assessed Fall Risk: 05/10/25 Dental Screening Dental Screen Date: 05/10/25 Did you have a dental visit in the last 12 months?: Yes Did you have a dental problem in the last 6 months where you did not have access to dental care?: No HPI HPI Comments History of Present Illness Details The patient is a 69 year old female with a past medical history of prediabetes, hyperlipidemia, scalp lesions, divertulosis, obesity presenting for follow up. Last seen by pcp in Aug Woke up in November with left neck/shoulder pain. Went to orthopedics. Was unable to tolerate seat belt cross body purse. She completed PT. She now has developed right shoulder pain. At the end of the month patient went to urgent care with diverticulitis, the flu. She started Dr Kota arthur. Mammo due Colonoscopy 2016 ROS see HPI PHYSICAL EXAM: GENERAL: Alert and oriented x 3. NAD EYES: EOMI. Anicteric. HENT: Moist mucous membranes. No scleral icterus. No cervical lymphadenopathy. LUNGS: Clear to auscultation bilaterally. CARDIOVASCULAR: Regular rate and rhythm. No murmur. No JVD. ABDOMEN: Soft, non-tender +bs EXTREMITIES: No edema. Non-tender. SKIN: No rashes or lesions. Warm. NEUROLOGIC: No focal neurological deficits. CN II-XII grossly intact PSYCHIATRIC: Cooperative. Appropriate mood and affect [facility] Medical History Seasonal allergies Back pain PONV (postoperative nausea and vomiting) History of motion sickness History of diverticulitis Pre-diabetes Elevated cholesterol Surgical History Status post excision of lipoma History of abdominal hysterectomy Hx of colonoscopy (~06/17/17) Family History Mother No problems noted. Father No problems noted. 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 1. Little interest or pleasure in doing things: not at all 2. Feeling down, depressed, or hopeless: not at all 3. Trouble falling or staying asleep, or sleeping too much: not at all 4. Feeling tired or having little energy: not at all 5. Poor appetite or overeating: not at all 6. Feeling bad about yourself - or that you are a failure or have let yourself or your family down: not at all 7. Trouble concentrating on things, such as reading the newspaper or watching television: not at all 8. Moving or speaking so slowly that other people could have noticed. Or the opposite - being so fidgety or restless that you have been moving around a lot more than usual: not at all 9. Thoughts that you would be better off or of hurting yourself in some way: not at all Total score: 0 Source: Developed by Drs. Jerardo Harris, Simin Duran, David Sinha and colleagues, with an educational manuel from [employer]. Thrive Questionnaire Date Thrive assessed: 05/10/25 I am a: Patient Within the past 12 months, did the food you bought not last and you didn't have the money to get more?: Never true Within the past 12 months, did you worry whether your food would run out before you got money to buy more?: Never true Do you have trouble paying for medicines?: No Do you have trouble getting transportation to medical appointments?: No Do you have trouble paying your heating and electricity bill?: No Do you have trouble taking care of your child, family member or friend?: No Do you have trouble with day-to-day activities such as bathing, preparing meals, shopping, managing finances, etc.?: No Are you currently unemployed and looking for a job?: No Are you interested in more education?: No THRIVE Score: 0 AUDIT C Alcohol Use Questionnaire (AUDIT-C) 1. How often do you have a drink containing alcohol?: Never 3. How often do you have six or more drinks on one occasion?: Never Total Score: 0 ANJU-7 AMB Questionnaire ANJU-7 Date ANJU - 7 assessed: 05/10/25 Feeling nervous, anxious, or on edge: 0 = Not at all Not being able to stop or control worryin = Not at all Worrying too much about different things: 0 = Not at all Trouble relaxin = Not at all Being so restless that it is hard to sit still: 0 = Not at all Becoming easily annoyed or irritable: 0 = Not at all Feeling afraid as if something awful might happen: 0 = Not at all Total ANJU-7 score (0-4 normal; 5-9 mild; 10-14 moderate; 15-21 severe): 0 Source: Developed by Drs. Jerardo Harris, Simin Duran, David Sinha and colleagues, with an educational manuel from [employer]. Physical exam (Primary Care) Vital Signs: Last Vital Signs Temp 97.5 F 05/10/25 09:53 Pulse 86 05/10/25 09:53 BP 136/80 05/10/25 09:53 Pulse Ox 97 05/10/25 09:53 Oxygen Delivery Method Room Air 05/10/25 09:53 BMI result Body Mass Index 36.6 Tobacco/Smoking Status: Tobacco use Status Tobacco use date assessed 05/10/25 05/10/25 09:56 Patient Tobacco Use Status Never used Tobacco 05/10/25 09:13 e-Cigarette/Vaping Use Never Used 05/10/25 09:56 PHQ-9: PHQ-9 Score PHQ-9: Total score 0 05/10/25 09:56 Thrive Assessment: Date of Thrive Assessment Date Thrive assessed 05/10/25 05/10/25 09:56 Coding Level of Care Code New Pt Level 4 (21327) Complex EM visit Add On G2211 Diagnoses Elevated cholesterol E78.00 Pre-diabetes R73.03 Obesity (BMI 35.0-39.9 without comorbidity) E66.9 Assessment & Plan Assessment & Plan (1) Elevated cholesterol: Comment: no meds yet Code(s): E78.00 - Pure hypercholesterolemia, unspecified Category: Medical (2) Pre-diabetes: Code(s): R73.03 - Prediabetes Category: Medical (3) Obesity (BMI 35.0-39.9 without comorbidity): Code(s): E66.9 - Obesity, unspecified Category: Medical Plan 69 y/o to establish care Past medical, surgical, social reviewed Diverticular disease-no recent pain. Normal BMs on probiotic Shoulder pain, right-xray ordered. labs and follow up 4 months Orders: Orders Comprehensive Met. Panel 4 Months E78.00 - Pure hypercholesterolemia, unspecified, R73.03 - Prediabetes, Z13.0 - Encounter for screening for diseases of the blood and blood-forming organs and certain disorders involving the immune mechanism, Z13.228 - Encounter for screening for other metabolic disorders TSH reflex Free T4 4 Months E78.00 - Pure hypercholesterolemia, unspecified, R73.03 - Prediabetes, Z13.0 - Encounter for screening for diseases of the blood and blood-forming organs and certain disorders involving the immune mechanism, Z13.228 - Encounter for screening for other metabolic disorders XR shoulder RT min 2V 4 Months E78.00 - Pure hypercholesterolemia, unspecified, M25.511 - Pain in right shoulder, R73.03 - Prediabetes, Z13.0 - Encounter for screening for diseases of the blood and blood-forming organs and certain disorders involving the immune mechanism, Z13.228 - Encounter for screening for other metabolic disorders Lipid Panel 4 Months E78.00 - Pure hypercholesterolemia, unspecified, R73.03 - Prediabetes, Z13.0 - Encounter for screening for diseases of the blood and blood-forming organs and certain disorders involving the immune mechanism, Z13.228 - Encounter for screening for other metabolic disorders Hemoglobin A1c 4 Months E78.00 - Pure hypercholesterolemia, unspecified, R73.03 - Prediabetes, Z13.0 - Encounter for screening for diseases of the blood and blood-forming organs and certain disorders involving the immune mechanism, Z13.228 - Encounter for screening for other metabolic disorders MM screening mammo BI Today Z12.31 - Encounter for screening mammogram for malignant neoplasm of breast
[2025-05-10 09:53] VITALS: BP 136/80; PULSE 86; TEMP 36.4; O2SAT 97; BMI 36.6
== END 2025-05-10 10:26 | disposition home or self-care (01) ==
LOC: HO.HMCHD 09:51
PROVIDERS: PCP Internal Medicine; Visit Provider Internal Medicine
DX: E78.00 Pure hypercholesterolemia, unspecified (principal); R73.03 Prediabetes; E66.9 Obesity, unspecified

== ENCOUNTER → 2025-05-10 10:46 | Outpatient (BNV) | payer MEDICARE, SELFPAY | PROVIDERS: PCP Internal Medicine; Visit Provider Radiology Diagnostic Radiology | DX: M85.611 Other cyst of bone, right shoulder (principal); M19.011 Primary osteoarthritis, right shoulder | CPT/HCPCS: 73030 ==

== ENCOUNTER 2025-07-12 09:57 | Outpatient (REF) | payer MEDICARE, SELFPAY ==
--- OUTSIDE RECORDS SUMMARY | 2025-04-30 05:00 | XMS_ITS ---
Author Name [facility] Organization [facility] Address [address] [place] [address] Support Name Relationship Address Phone STEVE TORRES Emergency Contact [address] [place], [place] [id number] Selected Encounter This section includes the information on record at [place] for the Encounter. Date/Time Encounter Type Encounter Description Reason Provider Source Apr 30, 2025 09:00 AM PROGRAM INTAKE ASSESSMENT CAREGIVER SUPPORT PROGRAM ICD-10-CM Z71.0 Prsn encntr hlth serv to consult on behalf of another person LOLIS WALLER E Encounter Template Text not used by [place] Assessments - Encounter Diagnoses This section includes the primary and secondary diagnoses documented for the Encounter. Date/Time Primary/Secondary Diagnosis Diagnosis Name Provider Source Apr 30, 2025 02:40 PM PRIMARY Prsn encntr hlth serv to consult on behalf of another person LOLIS WALLER [facility] Encounter Notes: All associated encounter notes This section contains the clinical notes associated to the Encounter. Date/Time Encounter Note(s) Provider Source Apr 30, 2025 04:08 PM CAREGIVER CERTIFICATE: LOCAL TITLE: CSP APPROVAL NOTE STANDARD TITLE: CAREGIVER CERTIFICATE DATE OF NOTE: APR 30, 2025@16:08 ENTRY DATE: JUN 12, 2025@16:09:25 AUTHOR: LOLIS WALLER EXP COSIGNER: URGENCY: STATUS: COMPLETED Caregiver Support Program Approval Note The individual being approved for the Program of General Caregiver Support Services is the General Caregiver: ROCAEL TORRES Name of [place] being cared for: Steve Fontainerill Approval Date: 04/30/2025 CSP staff provided the following documents: - CSP Lau Contact Information - Notice of Privacy Practices CSP staff provided information on the following resources and supports: - Caregiver Health and Wellbeing Coaching - Caregiver Self-Care Courses /es/ LOLIS WALLER LCSW Clinical Head Start Teacher Signed: 06/12/2025 16:10 LOLIS WALLER [facility] [place] Apr 30, 2025 09:52 AM CAREGIVER CERTIFICATE: LOCAL TITLE: CSP CAREGIVER ASSESSMENT STANDARD TITLE: CAREGIVER CERTIFICATE DATE OF NOTE: APR 30, 2025@09:52 ENTRY DATE: APR 30, 2025@09:53:02 AUTHOR: LOLIS WALLER EXP COSIGNER: URGENCY: STATUS: COMPLETED Caregiver Support Program Caregiver Assessment As part of the Caregiver Support Program (CSP), caregiver/applicant(s) and participants complete an assessment. This Caregiver Assessment is conducted to obtain information related to the strengths and needs of the caregiver to help develop an individualized plan of support. Date of assessment: Apr Time spent on assessment: 90 minutes The caregiver was identified using the following lau identifiers: Full Name: ROCAEL TORRES Date of : [birth year] Full [address] [address] [place] [address] Phone #: PATIENT PHONE - [phone] Email address: [email or web address] Is the above contact information in the electronic health record and the Caregiver Support Program IT system, correct? Yes The caregiver assessment is being conducted as part of the Program of General Caregiver Support Services (PGCSS) - Initial Assessment/Review. Method of contact: Video Telehealth Contact number for backup/emergency communication: PATIENT PHONE - [phone] Caregiver location during visit: Home [address], [place] [address] Caregiver confirms location is safe and private for visit. Telehealth Disclosure: Visit conducted by synchronous telehealth. Caregiver verbal consent obtained. Location/emergency number confirmed. Environment surveyed and all participants identified. Virtual conference room locked. CAREGIVER INFORMATION Type of Caregiver/applicant: General Caregiver Name of [place] being cared for: Steve Torres Relationship to [place]: Spouse/partner/significant other Caregiver is at least 18 years of age or older: Yes Caregiver's insurance status: Medicare Private Health Insurance Comment: BC/BS CAREGIVING HISTORY Caregiver reports past caregiving experience. Details: She cared for her mother as she aged. They also cared for her [id number] recently. Length of time caregiver reports caring for the : 3 to 5 years ADDITIONAL RESPONSIBILITIES: Employment: Yes, employed Details: 4 hrs day/ 20 hrs week. 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 CAREGIVER ROLE Caregiver's report of how a typical day is spent: Get up, pray with her friend, speaks with her sister to coordinate work (they work together), she will go into their office for a period of time. She will take the [place] with her when she can. Ways in which caregiver role affects the caregiver's everyday life: She noted that he started to require more care, and began chemotherapy during COV, so her transition to more caregiving activities was relatively easy. It has been mildly limiting to her social life. She is able to leave him home for periods of time. Caregiver's emergency plan for the care of the in the event they become unable to provide care: They have a plan to have their daughter help if needed for a short period of time. They have discussed the [facility] for a director long term care option. CAREGIVER HEALTH The caregiver is able to engage with health care/mental health care services for themself. Details: She has been able to see her PCP, she recently had to chane due to her MD's own shelter. The caregiver has experienced recent changes to their physical, mental, and/or emotional health. Details: In November developed a pinched nerve that is impacting her shoulders, was in PT. The caregiver does not report experiencing any forms of current or past intimate partner violence or domestic violence. The caregiver reports currently feeling safe at home. The caregiver does not report any current legal or financial concerns. SUPPORT AND SELF-CARE Caregiver's description of their support system: She has a robust support system, with her sister, 2 daughters, friends, and druze. The caregiver does not report any barriers in utilizing the above supports. Activities the caregiver would like to engage in outside of caregiving: She likes to visit with family and friends. She likes to cook. She is active in their druze. The caregiver reports the use of self-care strategies. Details: She likes to play cards, watch game shows, takes naps. SCREENING TOOLS Zarit Kaumakani Interview Zarit Kaumakani Interview (Caregiver burden scale), copyright 1990 by Eddie Quintero and Shahnaz Quintero, with permission to use. ZBI Screening score (range 0-16): Score is 3, which reflects low caregiver burden (scores of less than 8). 1. Do you feel that because of the time you spend with your relative that you do not have enough time for yourself? Never 2. Do you feel stressed between caring for your relative and trying to meet other responsibilities (work/family)? Rarely 3. Do you feel strained when you are around your relative? Sometimes 4. Do you feel uncertain about what to do about your relative? Never [place]-Suicide Severity Rating Scale (C-SSRS Screener) 1. Over the past month, have you wished you were or wished you could go to sleep and not wake up? No 2. Over the past month, have you had any actual thoughts of killing yourself? No 3. Over the past month, have you been thinking about how you might do this? Response not required due to responses to other questions. 4. Over the past month, have you had these thoughts and had some intention of acting on them? Response not required due to responses to other questions. 5. Over the past month, have you started to work out or worked out the details of how to kill yourself? Response not required due to responses to other questions. 6. If yes, at any time in the past month did you intend to carry out this plan? Response not required due to responses to other questions. 7. In your lifetime, have you ever done anything, started to do anything, or prepared to do anything to end your life (for example, collected pills, obtained a gun, gave away valuables, went to the roof but didn't jump)? No 8. If YES, was this within the past 3 months? Response not required due to responses to other questions. SUMMARY AND PLAN Caregiver challenges and stressors: CG reports that she experiences stress in balancing work and care at times, and that also the occasionally has limited insight into his needs and limitations, and that can create some tension between them. She has taken steps to limit what he has unsupervised access to while he is home and she is out, such as the stove. She notes that the has also soiled himself on occasion, and needs some ADL assitance with that. Caregiver strengths and coping skills: She is active, determined, intelligent. She notes that she is often put in charge of things that she particpates in. Caregiver reports needing the following additional knowledge and/or support: Not at this time. Plan of support: Enroll in PGCSS. CG will review the website to look at the online courses, and will be alerted to the monthly newsletter. She states that she doesn't need much support at the moment, but is worried about his changing cognitive capacity, and is aware that is likely to worsen over time. She is happy to [facility] the [facility], to help them navigate the system as needed. REFERRALS/RESOURCES PROVIDED: - Caregiver Self-Care Courses - Caregiver Support Line (CSL) Education Calls - Caregiver Webinars/Videos /es/ LOLIS WALLER LCSW Clinical Head Start Teacher Signed: 04/30/2025 14:40 LOLIS WALLER [facility]
--- OUTSIDE RECORDS SUMMARY | 2025-07-12 10:00 | XMS_ITS | Patient Health Record ---
Author Organization [facility] Address [address] [place] [address] Care Team Providers Care Data Integration Developer Name Role Phone Jordyn (RETIRED) Baudilio DUENAS Primary Care Provide r Jerardo Liao Unavailable [phone] Allergies Allergen (clinical drug ingredient) Drug/Non Drug Allergy documented on EMR Reaction Allergy Type Onset Date Status ampicillin Ampicillin Unknown Drug Allergy Activ e strawberries,mold,co rn (uncoded) Unknown Allergy Active Reason For Referral No Information Medications Medication SIG (Take, Route, Frequency, Duration) Notes Start Date End Date Status Calcium Active Vitamin B Complex Ac tive Ibuprofen 200 MG 1 tablet as needed O rally prn Active diphenhydrAMINE HCl 25 MG 1 capsule as n eeded Orally prn Active Social History Tobacco Use: Social History Observation Description Date Details (start date - stop date) Never Smoker NA - NA Tobacco Use/Smoking Question Answer Notes Patient is a nonsmoker Alcohol Screen Question Answer Notes Did you have a drink contain ing alcohol in the past year? Yes How often did you have a dri nk containing alcohol in the past year? Monthly or less (1 point) How many drinks did you have on a typical day when you were drinking in the past year? 1 or 2 drinks (0 point) How often did you have 6 or more drinks on one occasion in the past year? Never (0 point) Points 1 Interpretation Negative Section Notes: Nonsmoker; no sig alcohol Problems Problem Type SNOMED Code ICD Code Onset Dates Problem Status W/U Status Risk Notes Problem [id number] Encounter for screening for malignant neoplasm of colon (Z12.11) Active confirmed Problem [id number] Preprocedural examination (Z01.818) Active confirmed Plan Of Treatment Future Test Test Name Order Date COLONOSCOPY 04/05/2017 Insurance Providers Payer Name Payer Address Payer Phone Subscriber Number Group Number Insured Name Patient Relationship to Insured Coverage Start Date Coverage End Date [employer] [address] [place]UC[place] [phone] [id number] ROCAEL TORRES Self - patient is the insured Medical (General) History Medical History History ICD Code Denies [place],DM,CVA,Lung disease,renal dise ase Seasonal allergies Surgical History Surgery Date(Month/Year) Hysterectomy Scalp cysts
== END 2025-07-12 09:58 | disposition home or self-care (01) ==
LOC: HO.MAMMO 09:57
PROVIDERS: PCP Physician Assistant; Visit Provider Physician Assistant
DX: Z12.31 Encounter for screening mammogram for malignant neoplasm of breast (principal)
CPT/HCPCS: 77063; 77067

== ENCOUNTER → 2025-07-12 10:30 | Outpatient (BNV) | payer MEDICARE, SELFPAY | PROVIDERS: PCP Physician Assistant; Visit Provider Internal Medicine | DX: Z12.31 Encounter for screening mammogram for malignant neoplasm of breast (principal) | CPT/HCPCS: 77063; 77067 ==

== ENCOUNTER 2025-09-12 10:27 | Outpatient (AMB) | payer MEDICARE, SELFPAY ==
--- NOTE | 2025-09-12 09:24 | A.OFFPC_ITS ---
Vital Signs 09/12/25 09:25 Height 5 ft 2 in Weight 202 lb 8 oz BMI 37.0 BP 136/84 Blood Pressure Location Rt brachial Position Sitting Pulse 88 Pulse Source Pulse Oximeter Temp 97.6 F Temp Source Temporal Artery Scan Pulse Oximetry (%) 97 Oxygen Delivery Method Room Air Intake Visit Reasons: 4 mo f/u Family Law Paralegal Required: No Accompanied by: Self / Same As Patient Allergies ampicillin (AMPICILLIN) Allergy (Unknown, Verified 09/12/25 09:25) RASH, rash, neck swelling corn (CORN) Allergy (Unknown, Verified 09/12/25 09:25) Rash strawberry (STRAWBERRY) Allergy (Unknown, Verified 09/12/25 09:25) Rash ENVIRONMENTAL Allergy (Unknown, Uncoded 05/31/23 12:40) UNKNOWN Medication List - Last Reconciled 09/29/25 by BERTHA Huddleston azithromycin (Zithromax) For 250 mg dose pack: take 500 mg today (day 1), then 250 mg for 4 days (days 2-5) PO Tobacco use date assessed: 09/12/25 Fall risk assessment: No Falls in past year Last assessed Fall Risk: 09/12/25 Dental Screening Dental Screen Date: 09/12/25 Did you have a dental visit in the last 12 months?: Yes Did you have a dental problem in the last 6 months where you did not have access to dental care?: No HPI HPI Comments History of Present Illness Details The patient is a 70-year-old female with HLD, PreDM and obesity presenting to [facility] care and with a cough and possible bronchitis. The cough has persisted for two weeks and is productive, with symptoms worsening in the morning. The condition began with typical cold symptoms, including a sore throat and nasal congestion, which her also experienced. The patient has a history of seborrheic keratosis, with several lumps on her scalp that occasionally cause discomfort when brushing her hair. She had three lumps removed previously, which were benign, but a small one has grown slightly and was not removed due to excessive bleeding during prior procedures. The patient has a history of allergies to penicillin, strawberries, corn, and various environmental allergens. She has been generally healthy, with recent lab work in November showing normal results and a mammogram conducted in June. She is not due for a colonoscopy until 2026 and has had a hysterectomy, negating the need for Pap smears. Medical History: - Allergies: Penicillin, strawberries, c orn, environmental allergens Surgical History: - Hysterectomy Patient was informed and verbally consented to the use of an ambient scribe for clinic note documentation during this visit. [facility] Medical History (Updated 09/29/25 @ 23:04 by BERTHA Huddleston) Acute bronchitis Back pain Elevated cholesterol Health care maintenance History of diverticulitis History of motion sickness PONV (postoperative nausea and vomiting) Pre-diabetes Seasonal allergies Seborrheic keratoses Surgical History History of abdominal hysterectomy Hx of colonoscopy (~06/17/17) Status post excision of lipoma Family History Mother No problems noted. Father No problems noted. 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 1. Little interest or pleasure in doing things: not at all 2. Feeling down, depressed, or hopeless: not at all 3. Trouble falling or staying asleep, or sleeping too much: not at all 4. Feeling tired or having little energy: not at all 5. Poor appetite or overeating: not at all 6. Feeling bad about yourself - or that you are a failure or have let yourself or your family down: not at all 7. Trouble concentrating on things, such as reading the newspaper or watching television: not at all 8. Moving or speaking so slowly that other people could have noticed. Or the opposite - being so fidgety or restless that you have been moving around a lot more than usual: not at all 9. Thoughts that you would be better off or of hurting yourself in some way: not at all Total score: 0 Depression Screening Interpretation: Negative Depression Screening Done: Yes Source: Developed by Drs. Jerardo Harris, Simin Duran, David Sinha and colleagues, with an educational manuel from [employer]. Thrive Questionnaire Date Thrive assessed: 09/12/25 I am a: Patient Within the past 12 months, did the food you bought not last and you didn't have the money to get more?: Never true Within the past 12 months, did you worry whether your food would run out before you got money to buy more?: Never true Do you have trouble paying for medicines?: No Do you have trouble getting transportation to medical appointments?: No Do you have trouble paying your heating and electricity bill?: No Do you have trouble taking care of your child, family member or friend?: No Do you have trouble with day-to-day activities such as bathing, preparing meals, shopping, managing finances, etc.?: No Are you currently unemployed and looking for a job?: No Are you interested in more education?: No THRIVE Score: 0 AUDIT C Alcohol Use Questionnaire (AUDIT-C) 1. How often do you have a drink containing alcohol?: Never 3. How often do you have six or more drinks on one occasion?: Never Total Score: 0 ANJU-7 AMB Questionnaire ANJU-7 Date ANJU - 7 assessed: 09/12/25 Feeling nervous, anxious, or on edge: 0 = Not at all Not being able to stop or control worryin = Not at all Worrying too much about different things: 0 = Not at all Trouble relaxin = Not at all Being so restless that it is hard to sit still: 0 = Not at all Becoming easily annoyed or irritable: 0 = Not at all Feeling afraid as if something awful might happen: 0 = Not at all Total ANJU-7 score (0-4 normal; 5-9 mild; 10-14 moderate; 15-21 severe): 0 Source: Developed by Drs. Jerardo Harris, Simin Duran, David Sinha and colleagues, with an educational manuel from [employer]. Review of Systems Narrative CONSTITUTIONAL Negative HEAD/NECK Negative EAR/NOSE/MOUTH/THROAT Negative RESPIRATORY Reports productive cough for two weeks, worse in the morning CARDIOVASCULAR Negative GASTROINTESTINAL Negative MUSCULOSKELETAL Negative SKIN Reports lumps on scalp, occasional discomfort when brushing hair NEUROLOGICAL Negative PSYCHIATRIC Negative Physical exam (Primary Care) Vital Signs: Last Vital Signs Temp 97.6 F 09/12/25 09:25 Pulse 88 09/12/25 09:25 BP 136/84 09/12/25 09:25 Pulse Ox 97 09/12/25 09:25 Oxygen Delivery Method Room Air 09/12/25 09:25 BMI result Body Mass Index 37.0 GENERAL Well developed, obese, in no apparent distress HEENT Head-Normocephalic Eyes- PERRLA, EOMI, Conjuctiva clear, lids WNL Ears- Canals clear, TMs WNL Mouth/Throat-No lesions, no erythema, no exudate Neck- Supple, No lymphadenopathy, thyroid WNL RESPIRATORY Normal I:E, Rhonchi without rales or wheezes CARDIOVASCULAR Regular, rate and rhythm, No murmurs or rubs GASTROINTESTINAL Soft, nontender, normal bowel sounds, no masses MUSCULOSKELETAL Back- nontender Joints- no swelling or deformity NEUROLOGICAL Gait normal PSYCHIATRIC Oriented to person, place and time Mood and affect WNL Appearance WNL Speech WNL Thought processes WNL Tobacco/Smoking Status: Tobacco use Status Tobacco use date assessed 09/12/25 09/12/25 09:26 Patient Tobacco Use Status Never used Tobacco 09/12/25 09:26 e-Cigarette/Vaping Use Never Used 09/12/25 09:26 PHQ-9: PHQ-9 Score PHQ-9: Total score 0 09/12/25 09:26 Depression Screening Interpretation: Negative Thrive Assessment: Date of Thrive Assessment Date Thrive assessed 09/12/25 09/12/25 09:26 Coding Level of Care Code Established Pt Est Pt Level 4 (65661) Patient Type Established Diagnoses Acute bronchitis J20.9 Seborrheic keratoses L82.1 Obesity (BMI 35.0-39.9 without comorbidity) E66.9 Time Spent (min) 30 Comment Time spent on chart review, H&P, patient education and Orders. Assessment & Plan Assessment & Plan (1) Acute bronchitis: Code(s): J20.9 - Acute bronchitis, unspecified Category: Medical Plan: The patient is suspected to have bronchitis, characterized by a productive cough lasting two weeks. A Zithromax (azithromycin) regimen was discussed as a treatment option, with instructions to take two pills on the first day followed by one pill daily for four days. The patient was advised to maintain adequate fluid intake to help clear mucus. Patient to follow up as needed if symptoms persist or worsen. (2) Seborrheic keratoses: Code(s): L82.1 - Other seborrheic keratosis Category: Medical Plan: The patient has seborrheic keratosis with several lumps on her scalp, some of which have been previously removed. The patient was advised to consider dermatological evaluation after insurance changes are finalized. (3) Obesity (BMI 35.0-39.9 without comorbidity): Comment: BMI today was 37.0 Code(s): E66.9 - Obesity, unspecified Category: Medical Plan: Discussed the health risks of obesity with the patient. Reviewed benefits of even moderate weight loss with the patient. Patient will gradually try and increase exercise to 30-40 min 5-7 times per week. We discussed the patient adding more fruits and vegetables to their diet. Will monitor weight and follow up in 3 months. Plan I discussed with the patient the likelihood of bronchitis and the treatment plan involving Zithromax. We reviewed the importance of fluid intake to aid in mucus clearance. I also advised her to consider dermatological evaluation for seborrheic keratosis after her insurance changes are finalized. Orders: Orders Vitamin D 25-OH Total 09/12/25 Z00.00 - Encounter for general adult medical examination without abnormal findings Medications: New azithromycin (Zithromax) For 250 mg dose pack: take 500 mg today (day 1), then 250 mg for 4 days (days 2-5) PO 6 tabs 0RF FOR BRONCHITIS Patient Instructions: - Take Zithromax as prescribed: two pills on the first day, then one pill daily for four days. - Drink plenty of fluids to help clear mucus. - Consider dermatological evaluation for scalp lumps after insurance changes.
[2025-09-12 09:25] VITALS: BP 136/84; PULSE 88; TEMP 36.4; O2SAT 97; BMI 37.0
--- NOTE | 2025-09-12 10:36 | MHC.PC.OV ---
Vital Signs 09/12/25 09:25 Height 5 ft 2 in Weight 202 lb 8 oz BMI 37.0 BP 136/84 Blood Pressure Location Rt brachial Position Sitting Pulse 88 Pulse Source Pulse Oximeter Temp 97.6 F Temp Source Temporal Artery Scan Pulse Oximetry (%) 97 Oxygen Delivery Method Room Air Intake Visit Reasons: 4 mo f/u Cafeteria Cashier Required: No Accompanied by: Self / Same As Patient Allergies ampicillin (AMPICILLIN) Allergy (Unknown, Verified 09/12/25 09:25) RASH, rash, neck swelling corn (CORN) Allergy (Unknown, Verified 09/12/25 09:25) Rash strawberry (STRAWBERRY) Allergy (Unknown, Verified 09/12/25 09:25) Rash ENVIRONMENTAL Allergy (Unknown, Uncoded 05/31/23 12:40) UNKNOWN Tobacco use date assessed: 09/12/25 Fall risk assessment: No Falls in past year Last assessed Fall Risk: 09/12/25 Dental Screening Dental Screen Date: 09/12/25 Did you have a dental visit in the last 12 months?: Yes Did you have a dental problem in the last 6 months where you did not have access to dental care?: No [facility] Medical History (Updated 09/12/25 @ 11:09 by BERTHA Huddleston) Back pain Elevated cholesterol Health care maintenance History of diverticulitis History of motion sickness PONV (postoperative nausea and vomiting) Pre-diabetes Seasonal allergies Surgical History History of abdominal hysterectomy Hx of colonoscopy (~06/17/17) Status post excision of lipoma Family History Mother No problems noted. Father No problems noted. Social History Housing: House Patient Tobacco Use Status: Never used Tobacco e-Cigarette/Vaping Use: Never Used service: No Current occupational status: employed (self employed) Current occupation: right hand / database manager Cognitive needs: No Hearing needs: No Vision needs: Yes (rx glasses) Questionnaire PHQ-9 Over the last 2 weeks, how often have you been bothered by any of the following problems? 1. Little interest or pleasure in doing things: not at all 2. Feeling down, depressed, or hopeless: not at all 3. Trouble falling or staying asleep, or sleeping too much: not at all 4. Feeling tired or having little energy: not at all 5. Poor appetite or overeating: not at all 6. Feeling bad about yourself - or that you are a failure or have let yourself or your family down: not at all 7. Trouble concentrating on things, such as reading the newspaper or watching television: not at all 8. Moving or speaking so slowly that other people could have noticed. Or the opposite - being so fidgety or restless that you have been moving around a lot more than usual: not at all 9. Thoughts that you would be better off or of hurting yourself in some way: not at all Total score: 0 Source: Developed by Drs. Jerardo Harris, Simin Duran, David Sinha and colleagues, with an educational manuel from [employer]. Thrive Questionnaire Date Thrive assessed: 09/12/25 I am a: Patient Within the past 12 months, did the food you bought not last and you didn't have the money to get more?: Never true Within the past 12 months, did you worry whether your food would run out before you got money to buy more?: Never true Do you have trouble paying for medicines?: No Do you have trouble getting transportation to medical appointments?: No Do you have trouble paying your heating and electricity bill?: No Do you have trouble taking care of your child, family member or friend?: No Do you have trouble with day-to-day activities such as bathing, preparing meals, shopping, managing finances, etc.?: No Are you currently unemployed and looking for a job?: No Are you interested in more education?: No THRIVE Score: 0 AUDIT C Alcohol Use Questionnaire (AUDIT-C) 1. How often do you have a drink containing alcohol?: Never 3. How often do you have six or more drinks on one occasion?: Never Total Score: 0 ANJU-7 AMB Questionnaire ANJU-7 Date ANJU - 7 assessed: 09/12/25 Feeling nervous, anxious, or on edge: 0 = Not at all Not being able to stop or control worryin = Not at all Worrying too much about different things: 0 = Not at all Trouble relaxin = Not at all Being so restless that it is hard to sit still: 0 = Not at all Becoming easily annoyed or irritable: 0 = Not at all Feeling afraid as if something awful might happen: 0 = Not at all Total ANJU-7 score (0-4 normal; 5-9 mild; 10-14 moderate; 15-21 severe): 0 Source: Developed by Drs. Jerardo Harris, Simin Duran, David Sinha and colleagues, with an educational manuel from [employer]. Physical exam (Primary Care) Vital Signs: Last Vital Signs Temp 97.6 F 09/12/25 09:25 Pulse 88 09/12/25 09:25 BP 136/84 09/12/25 09:25 Pulse Ox 97 09/12/25 09:25 Oxygen Delivery Method Room Air 09/12/25 09:25 BMI result Body Mass Index 37.0 Tobacco/Smoking Status: Tobacco use Status Tobacco use date assessed 09/12/25 09/12/25 10:40 Patient Tobacco Use Status Never used Tobacco 09/12/25 10:40 e-Cigarette/Vaping Use Never Used 09/12/25 10:40 PHQ-9: PHQ-9 Score PHQ-9: Total score 0 09/12/25 10:40 Thrive Assessment: Date of Thrive Assessment Date Thrive assessed 09/12/25 09/12/25 10:40 Coding Assessment & Plan Assessment & Plan Orders: Orders Vitamin D 25-OH Total 09/12/25 Z00.00 - Encounter for general adult medical examination without abnormal findings Medications: New azithromycin (Zithromax) For 250 mg dose pack: take 500 mg today (day 1), then 250 mg for 4 days (days 2-5) PO 6 tabs 0RF FOR BRONCHITIS
== END 2025-09-12 11:05 | disposition home or self-care (01) ==
LOC: HO.HMCHD 10:28
PROVIDERS: PCP Internal Medicine; Visit Provider Physician Assistant Medical
DX: J20.9 Acute bronchitis, unspecified (principal); L82.1 Other seborrheic keratosis; E66.9 Obesity, unspecified

== ENCOUNTER → 2025-09-12 10:27 | Outpatient (BNVA) | payer MEDICARE, SELFPAY | PROVIDERS: PCP Internal Medicine; Visit Provider Physician Assistant Medical | DX: J20.9 Acute bronchitis, unspecified (principal); L82.1 Other seborrheic keratosis; E66.9 Obesity, unspecified; Z68.37 Body mass index [BMI] 37.0-37.9, adult; Z88.0 Allergy status to penicillin; Z91.018 Allergy to other foods; Z13.31 Encounter for screening for depression; Z13.39 Encounter for screening examination for other mental health and behavioral disorders | CPT/HCPCS: 96127; 99212 ==